=== PATIENT | male | born 1985 | race Caucasian/White ===

== ENCOUNTER 2017-02-02 18:25 | Emergency (ER) | payer OTHER | END 2017-02-02 21:55 | disposition home or self-care (01) | LOC: ER1 18:25 | DX: M25.512 Pain in left shoulder (principal); M54.12 Radiculopathy, cervical region; F17.210 Nicotine dependence, cigarettes, uncomplicated | CPT/HCPCS: 72125; 73030; 96372; 99283; J1100 ==